=== PATIENT | male | born 1970 | race Caucasian/White ===

== ENCOUNTER 2016-09-06 19:56 | Emergency (ER) | payer OTHER ==
--- NOTE | 2016-09-06 22:08 | ED NURSING NOTES ---
Clinical Report - Nurses [facility] [address] [place] [address] 09/06/2016 19:57 Patient: AWAIS ROSADO TRIAGE Triage time 20:Sep 06 2016. Acuity: LEVEL 4. Chief Complaint: BACK PAIN and (Back pain since August, now left leg pain for one week into calf). 20:26 09/06/16. SEPSIS SCREEN: Sepsis Screen. Negative (no infection suspected/documented). NAKITA COMA SCORE: Nakita Coma Scale: 15- eyes open spontaneously (4); best verbal response- oriented x 4 (5); best motor response- obeys commands (6). --20:26 Goldie Pressley R.N. 20:19 09/06/16. BP: 152/99 (regular adult cuff) taken on the left arm, while sitting. HR: 75. RR: 18. O2 saturation: 98% on room air. Temp: 98.1 F (oral). Pain level now: 11/09. --20:26 Goldie Pressley R.N. Weight: 102 kg stated. Height/Length: 73 inches Per Patient. BMI: 29.7. --20:26 Goldie Pressley R.N. Medications Acyclovir Oral 400 mg, daily. Gabapentin Oral 100 mg, 3x a day. HydrOXYzine HCl Oral 20 mg, 2x a day. Ibuprofen Oral 800 mg, 2x a day. Nasal [place] Nasal, bid . Nortriptyline HCl Oral 10 mg, daily. Ranitidine HCl Oral 75 mg, 2x a day. Tylenol Oral 1000mg am and 1000mg pm . --20:21 Goldie Pressley R.N. Allergies No Known Drug Allergy. --20:21 Goldie Pressley R.N. History Arrived by private vehicle. Historian: patient. Accompanied by family. Onset. (1 months ago). He has had mild left leg pain. No history of recent trauma. 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 SOCIAL HX: Smoker- current status unknown. Alcohol use; consumes beer daily. Patient smells of ETOH in the emergency department. No drug use. No infectious disease exposure. ABUSE ASSESSMENT: No report of abuse. --20:26 Goldie Pressley R.N. PROBLEMS: Renal Colic. Intervertebral Disc Disease. Back Pain. Reflux. Epicondylitis. Neck Pain. --20:21 Goldie Pressley R.N. ADDITIONAL SURGERIES: Cholecystectomy. Lipomas . Vasectomy. --20:21 Goldie Pressley R.N. Interventions ID band on patient. To treatment room. --20:26 Goldie Pressley R.N. PHYSICAL ASSESSMENT 20:09/06/16. To room via wheelchair. Patient gowned. GENERAL / NEURO / PSYCH: Alert. Oriented X 4. Appears in no acute distress. RESPIRATORY: Respirations not labored. Chest nontender. Breath sounds within normal limits. CVS: Normal heart rate and rhythm. Capillary refill less than 2 seconds. GI / : Abdomen soft and nontender. Bowel sounds within normal limits. EXTREMITIES: ROM of extremities within normal limits. BACK: Normal inspection of the neck and back. Limited ROM of the back. No neck or back tenderness. --20:27 Goldie Pressley R.N. NURSING PROGRESS NOTES 20:09/06/16. The plan of care for this patient has been created. Head of bed elevated. Reassurance given. Two patient identifiers checked. Call light placed in reach. Side rails up x 1. Bed placed in lowest position. Brakes of bed on. Patient ready for evaluation- chart flagged and PA notified. --20:27 Goldie Pressley R.N. 21:09/06/2016 Valium (Diazepam) PO Tablets 2.5 mg given. Allergies verified, confirmed 5 rights and sedative warning given to the patient. --21:21 Goldie Pressley R.N. 21:21 09/06/2016 Hydrocodone-APAP (Hydrocodone-Acetaminophen) PO 5/325 mg Tablets 1 tab given. Allergies verified, confirmed 5 rights and sedative warning given to the patient. --21:21 Goldie Pressley R.N. 21:22 09/06/16. 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 Patient offered blanket and he refused. Patient notified he will have US after tech is done in another room). --21:22 Goldie Pressley R.N. 21:34 09/06/2016 Valium PO Response: no adverse reaction pain is improving. Symptoms have improved the patient feels better. --21:34 Goldie Pressley R.N. 21:34 09/06/2016 Hydrocodone-APAP PO Response: no adverse reaction pain is improving. Symptoms have improved the patient feels better. --21:34 Goldie Pressley R.N. 21:35 09/06/16. --21:35 Goldie Pressley R.N. 21:34 09/06/16. BP: 133/87 (regular adult cuff) taken on the left arm. HR: 64. RR: 16. O2 saturation: 99% on room air. Pain level now: 10/10. --21:35 Goldie Presslye R.N. 21:43 09/06/16. ( US in with patient). --21:43 Goldie Pressley R.N. 22:08 09/06/16. ( US done with patient). --22:08 Goldie Pressley R.N. 22:14 09/06/16. ( Patient ready to be discharged, he is calling for a ride home since he had pain meds and valium). --22:14 Goldie Pressley R.N. DISPOSITION / DISCHARGE 22:44 09/06/16. Condition at departure: improved. No learning barriers present. Discharge instructions provided and reviewed with the patient. Reviewed medication(s) side effects, precautions, dosing and course information. Prescription(s) given to the patient. Patient verbalized understanding. Written instructions provided in Japanese. The patient was discharged by the physician assistant research scientist. He was discharged home and accompanied by spouse. He left the Emergency Department ambulatory and via private vehicle. Spouse driving. --22:44 Goldie Pressley R.N. 22:43 09/06/16. BP: 130/82 (regular adult cuff) taken on the left arm. HR: 16. RR: 16. O2 saturation: 100% on room air. Temp: 98.4 F (oral). Pain level now: 09/09. --22:44 Goldie Pressley R.N. Departure time: 22:17 Sep 06 2016. --22:45 Goldie Pressley R.N. Locked/Released at 09/06/2016 22:45 by Goldie Pressley R.N.
--- NOTE | 2016-09-06 22:08 | ED CLINICAL REPORT ---
Clinical Report - Physicians/Mid Levels [facility] [address] [place] [address] 09/06/2016 19:57 Patient: AWAIS ROSADO Time Seen: 20:28 Sep 06 2016. Arrived- By private vehicle. Historian- patient. HISTORY OF PRESENT ILLNESS Chief Complaint: BACK PAIN. 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 It is described as being in the area of the left lower lumbar spine, left gluteus and lower lumbar spine and radiating. The quality is noted to be "pain". No bladder dysfunction, bowel dysfunction or sensory loss. Additional history - Low back pain radiating to the left lower extremity. patient reports pain worsening over the last 2 weeks, has had massage therapy to the area. Denies any direct fall or trauma to the area. Denies any saddle anesthesia. Paresthesias from his gluteus to his left foot. Patient reports calf cramping and aching. Patient denies any urinary incontinence. Reports pain worsens with movement, sitting. Patient has a difficult time finding position of comfort. Pain cristobal calf worsens with movement / relieved by rest. Patient notes the possibility of an injury. REVIEW OF SYSTEMS No fever, difficulty with urination, urinary frequency, abdominal pain or vomiting. All systems otherwise negative, except as recorded above. SOCIAL HISTORY Alcohol use. No drug use. ADDITIONAL NOTES The nursing notes have been reviewed. PHYSICAL EXAM Vital Signs: 09/06/2016 20:19 BP: 152/99. HR: 75. RR: 18. O2 saturation: 98%. Temp: 98.1 F. Pain level now: 7/10. Appearance: Alert. HEENT: Normal external inspection. Eyes: Pupils equal, round and reactive to light. ENT: Ears normal. Neck: Neck nontender. CVS: Heart sounds normal. Pulses normal. No decreased pulses. Respiratory: No respiratory distress. Breath sounds normal. Abdomen: No visible injury. The bowel sounds are not abnormal. Back: Moderate vertebral point tenderness over the mid and lower lumbar spine. Moderate soft tissue tenderness in the left mid and lower lumbar area. No muscle spasm in the back. Skin: Skin warm. Neuro: Oriented X 3. No sensory deficit. Straight leg raising: positive on the left at 45 degrees. Reflex exam: left patellar 2+. LABS, X-RAYS, AND EKG Note - Tests: (neg us let le for DT). PROGRESS AND PROCEDURES Course of Care: There are no risks for spinal epidural abscess or hematoma as patient is without any risk factors such as IVDA or evidence of active infection, no midline tenderness to percussion. Hence I do not feel emergent imaging with an MRI is indicated. However I did discuss with the patient that if these symptoms develop, or if the pain does not resolve an MRI may need to be done outpatient, or in the ED if symptoms worsen acutely or new onset of the above mentioned symptoms develop. 09/06/2016 22:43 BP: 130/82. HR: 16. RR: 16. O2 saturation: 100%. Temp: 98.4 F. Pain level now: 5/10. Patient is stable. Patient/family counseled. Disposition: Discharged. Condition: good. CLINICAL IMPRESSION Myofascial strain Acute lumbar strain. INSTRUCTIONS Apply ice. Limit lifting. No strenuous activity. Rest. (NO SIGNS OF BLOOD CLOT). Warnings: SEDATIVE MEDICATION: You were given sedative medication during your visit. Do not drive or operate dangerous machinery. Prescription Medications: Hydrocodone/APAP 5mg / 325mg: take 1 orally every 6 hours. Dispense twenty (20). No refill. Robaxin 750 mg: take 1 orally every 8 hours for 5 days, as needed for muscle spasm. Dispense fifteen (15). No refill. Substitution is permissible. Follow-up: Follow up with your doctor in three days. Understanding of the discharge instructions verbalized by patient. (Electronically signed by Neisha Wetzel P.A.-C 09/06/2016 23:17)
--- NOTE | 2016-09-06 22:08 | ED CLINICAL REPORT ---
Clinical Report - Physicians/Mid Levels [facility] [address] [place] [address] 09/06/2016 19:57 Patient: AWAIS ROSADO Time Seen: 20:28 Sep 06 2016. Arrived- By private vehicle. Historian- patient. HISTORY OF PRESENT ILLNESS Chief Complaint: BACK PAIN. 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 It is described as being in the area of the left lower lumbar spine, left gluteus and lower lumbar spine and radiating. The quality is noted to be "pain". No bladder dysfunction, bowel dysfunction or sensory loss. Additional history - Low back pain radiating to the left lower extremity. patient reports pain worsening over the last 2 weeks, has had massage therapy to the area. Denies any direct fall or trauma to the area. Denies any saddle anesthesia. Paresthesias from his gluteus to his left foot. Patient reports calf cramping and aching. Patient denies any urinary incontinence. Reports pain worsens with movement, sitting. Patient has a difficult time finding position of comfort. Pain cristobal calf worsens with movement / relieved by rest. Patient notes the possibility of an injury. REVIEW OF SYSTEMS No fever, difficulty with urination, urinary frequency, abdominal pain or vomiting. All systems otherwise negative, except as recorded above. SOCIAL HISTORY Alcohol use. No drug use. ADDITIONAL NOTES The nursing notes have been reviewed. PHYSICAL EXAM Vital Signs: 09/06/2016 20:19 BP: 152/99. HR: 75. RR: 18. O2 saturation: 98%. Temp: 98.1 F. Pain level now: 7/10. Appearance: Alert. HEENT: Normal external inspection. Eyes: Pupils equal, round and reactive to light. ENT: Ears normal. Neck: Neck nontender. CVS: Heart sounds normal. Pulses normal. No decreased pulses. Respiratory: No respiratory distress. Breath sounds normal. Abdomen: No visible injury. The bowel sounds are not abnormal. Back: Moderate vertebral point tenderness over the mid and lower lumbar spine. Moderate soft tissue tenderness in the left mid and lower lumbar area. No muscle spasm in the back. Skin: Skin warm. Neuro: Oriented X 3. No sensory deficit. Straight leg raising: positive on the left at 45 degrees. Reflex exam: left patellar 2+. LABS, X-RAYS, AND EKG Note - Tests: (neg us let le for DT). PROGRESS AND PROCEDURES Course of Care: There are no risks for spinal epidural abscess or hematoma as patient is without any risk factors such as IVDA or evidence of active infection, no midline tenderness to percussion. Hence I do not feel emergent imaging with an MRI is indicated. However I did discuss with the patient that if these symptoms develop, or if the pain does not resolve an MRI may need to be done outpatient, or in the ED if symptoms worsen acutely or new onset of the above mentioned symptoms develop. 09/06/2016 22:43 BP: 130/82. HR: 16. RR: 16. O2 saturation: 100%. Temp: 98.4 F. Pain level now: 5/10. Patient is stable. Patient/family counseled. Disposition: Discharged. Condition: good. CLINICAL IMPRESSION Myofascial strain Acute lumbar strain. INSTRUCTIONS Apply ice. Limit lifting. No strenuous activity. Rest. (NO SIGNS OF BLOOD CLOT). Warnings: SEDATIVE MEDICATION: You were given sedative medication during your visit. Do not drive or operate dangerous machinery. Prescription Medications: Hydrocodone/APAP 5mg / 325mg: take 1 orally every 6 hours. Dispense twenty (20). No refill. Robaxin 750 mg: take 1 orally every 8 hours for 5 days, as needed for muscle spasm. Dispense fifteen (15). No refill. Substitution is permissible. Follow-up: Follow up with your doctor in three days. Understanding of the discharge instructions verbalized by patient. (Electronically signed by Neisha Wetzle P.A.-C 09/06/2016 23:17)
--- NOTE | 2016-09-06 22:08 | ED ORDER SUMMARY ---
..... Patient: AWAIS ROSADO OrderSheet [facility] VisitID: [id number] [address] [place] [address] 46y, M Registration Date/Time: 09/06/2016 ORDER SHEET Weight: 102.0 kg (stated) Allergies: No Known Drug Allergy GENERAL ORDERS: US Venous Left Urgent (20:50 09/06/2016 Fiordaliza Schaefer) (Ack 21:00 AMcQuoid ER Tech1) (22:08 JSanders R.N.) MEDICATION ORDERS: Hydrocodone-APAP PO 5/325 mg (NOW, HIGH ALERT MEDICATION) (20:58 09/06/2016 Fiordaliza Schaefer) (Ack 21:18 JSanders R.N.) (21:21 JSanders R.N.) Valium PO 2.5 mg (HIGH ALERT MEDICATION, NOW) (20:58 09/06/2016 Fiordaliza Schaefer) (Ack 21:18 JSanders R.N.) (21:21 JSanders R.N.) IV FLUIDS: ORDER SHEET NOTES: [Electronically signed by Goldie Pressley R.N. (22:45 09/06/2016)] [Electronically signed by Neisha Wetzel P.A.-C (23:17 09/06/2016)] [Electronically locked/signed by Goldie Pressley R.N. (22:45 09/06/2016)]
--- NOTE | 2016-09-06 22:08 | ED NURSING NOTES ---
Clinical Report - Nurses [facility] [address] [place] [address] 09/06/2016 19:57 Patient: AWAIS ROSADO TRIAGE Triage time 20:Sep 06 2016. Acuity: LEVEL 4. Chief Complaint: BACK PAIN and (Back pain since August, now left leg pain for one week into calf). 20:26 09/06/16. SEPSIS SCREEN: Sepsis Screen. Negative (no infection suspected/documented). NAKITA COMA SCORE: Nakita Coma Scale: 15- eyes open spontaneously (4); best verbal response- oriented x 4 (5); best motor response- obeys commands (6). --20:26 Goldie Pressley R.N. 20:19 09/06/16. BP: 152/99 (regular adult cuff) taken on the left arm, while sitting. HR: 75. RR: 18. O2 saturation: 98% on room air. Temp: 98.1 F (oral). Pain level now: 11/09. --20:26 Goldie Pressley R.N. Weight: 102 kg stated. Height/Length: 73 inches Per Patient. BMI: 29.7. --20:26 Goldie Pressley R.N. Medications Acyclovir Oral 400 mg, daily. Gabapentin Oral 100 mg, 3x a day. HydrOXYzine HCl Oral 20 mg, 2x a day. Ibuprofen Oral 800 mg, 2x a day. Nasal [place] Nasal, bid . Nortriptyline HCl Oral 10 mg, daily. Ranitidine HCl Oral 75 mg, 2x a day. Tylenol Oral 1000mg am and 1000mg pm . --20:21 Goldie Pressley R.N. Allergies No Known Drug Allergy. --20:21 Goldie Pressley R.N. History Arrived by private vehicle. Historian: patient. Accompanied by family. Onset. (1 months ago). He has had mild left leg pain. No history of recent trauma. 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 SOCIAL HX: Smoker- current status unknown. Alcohol use; consumes beer daily. Patient smells of ETOH in the emergency department. No drug use. No infectious disease exposure. ABUSE ASSESSMENT: No report of abuse. --20:26 Goldie Pressley R.N. PROBLEMS: Renal Colic. Intervertebral Disc Disease. Back Pain. Reflux. Epicondylitis. Neck Pain. --20:21 Goldie Pressley R.N. ADDITIONAL SURGERIES: Cholecystectomy. Lipomas . Vasectomy. --20:21 Goldie Pressley R.N. Interventions ID band on patient. To treatment room. --20:26 Goldie Pressley R.N. PHYSICAL ASSESSMENT 20:09/06/16. To room via wheelchair. Patient gowned. GENERAL / NEURO / PSYCH: Alert. Oriented X 4. Appears in no acute distress. RESPIRATORY: Respirations not labored. Chest nontender. Breath sounds within normal limits. CVS: Normal heart rate and rhythm. Capillary refill less than 2 seconds. GI / : Abdomen soft and nontender. Bowel sounds within normal limits. EXTREMITIES: ROM of extremities within normal limits. BACK: Normal inspection of the neck and back. Limited ROM of the back. No neck or back tenderness. --20:27 Goldie Pressley R.N. NURSING PROGRESS NOTES 20:09/06/16. The plan of care for this patient has been created. Head of bed elevated. Reassurance given. Two patient identifiers checked. Call light placed in reach. Side rails up x 1. Bed placed in lowest position. Brakes of bed on. Patient ready for evaluation- chart flagged and PA notified. --20:27 Goldie Pressley R.N. 21:09/06/2016 Valium (Diazepam) PO Tablets 2.5 mg given. Allergies verified, confirmed 5 rights and sedative warning given to the patient. --21:21 Goldie Pressley R.N. 21:21 09/06/2016 Hydrocodone-APAP (Hydrocodone-Acetaminophen) PO 5/325 mg Tablets 1 tab given. Allergies verified, confirmed 5 rights and sedative warning given to the patient. --21:21 Goldie Pressley R.N. 21:22 09/06/16. 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 Patient offered blanket and he refused. Patient notified he will have US after tech is done in another room). --21:22 Goldie Pressley R.N. 21:34 09/06/2016 Valium PO Response: no adverse reaction pain is improving. Symptoms have improved the patient feels better. --21:34 Goldie Pressley R.N. 21:34 09/06/2016 Hydrocodone-APAP PO Response: no adverse reaction pain is improving. Symptoms have improved the patient feels better. --21:34 Goldie Pressley R.N. 21:35 09/06/16. --21:35 Goldie Pressley R.N. 21:34 09/06/16. BP: 133/87 (regular adult cuff) taken on the left arm. HR: 64. RR: 16. O2 saturation: 99% on room air. Pain level now: 10/10. --21:35 Goldie Pressley R.N. 21:43 09/06/16. ( US in with patient). --21:43 Goldie Pressley R.N. 22:08 09/06/16. ( US done with patient). --22:08 Goldie Pressley R.N. 22:14 09/06/16. ( Patient ready to be discharged, he is calling for a ride home since he had pain meds and valium). --22:14 Goldie Pressley R.N. DISPOSITION / DISCHARGE 22:44 09/06/16. Condition at departure: improved. No learning barriers present. Discharge instructions provided and reviewed with the patient. Reviewed medication(s) side effects, precautions, dosing and course information. Prescription(s) given to the patient. Patient verbalized understanding. Written instructions provided in Danish. The patient was discharged by the physician assistant surveyor. He was discharged home and accompanied by spouse. He left the Emergency Department ambulatory and via private vehicle. Spouse driving. --22:44 Goldie Pressley R.N. 22:43 09/06/16. BP: 130/82 (regular adult cuff) taken on the left arm. HR: 16. RR: 16. O2 saturation: 100% on room air. Temp: 98.4 F (oral). Pain level now: 09/09. --22:44 Goldie Pressley R.N. Departure time: 22:17 Sep 06 2016. --22:45 Goldie Pressley R.N. Locked/Released at 09/06/2016 22:45 by Goldie Pressley R.N.
--- NOTE | 2016-09-06 22:08 | ED ORDER SUMMARY ---
..... Patient: AWAIS ROSADO OrderSheet [facility] VisitID: [id number] [address] [place] [address] 46y, M Registration Date/Time: 09/06/2016 ORDER SHEET Weight: 102.0 kg (stated) Allergies: No Known Drug Allergy GENERAL ORDERS: US Venous Left Urgent (20:50 09/06/2016 Fiordaliza Schaefer) (Ack 21:00 AMcQuoid ER Tech1) (22:08 JSanders R.N.) MEDICATION ORDERS: Hydrocodone-APAP PO 5/325 mg (NOW, HIGH ALERT MEDICATION) (20:58 09/06/2016 Fiordaliza Schaefer) (Ack 21:18 JSanders R.N.) (21:21 JSanders R.N.) Valium PO 2.5 mg (HIGH ALERT MEDICATION, NOW) (20:58 09/06/2016 Fiordaliza Schaefer) (Ack 21:18 JSanders R.N.) (21:21 JSanders R.N.) IV FLUIDS: ORDER SHEET NOTES: [Electronically signed by Goldie Pressley R.N. (22:45 09/06/2016)] [Electronically signed by Neisha Wetzel P.A.-C (23:17 09/06/2016)] [Electronically locked/signed by Goldie Pressley R.N. (22:45 09/06/2016)]
--- NOTE | 2016-09-06 22:35 | DIAGNOSTIC IMAGING REPORT ---
PROCEDURE: US VENOUS - LEFT EXT INDICATION: PAIN TECHNIQUE: Duplex sonography of the deep venous system in the left lower extremity was performed. Compression and augmentation techniques were used. COMPARISON: None. FINDINGS: Each interrogated segment of deep vein from the common femoral vein into the calf veins demonstrates normal compressibility, augmentation and/or color Doppler flow without filling defect. No evidence of significant soft-tissue edema, soft-tissue mass or cyst. Prominent, patent dilated varicose vein in the left mid calf medially. IMPRESSION: 1. No deep venous thrombosis in the left lower extremity. 2. No visible superficial thrombophlebitis.
--- NOTE | 2016-09-06 23:17 | ED MED RECONCILIATION SUMMARY ---
Patient: AWAIS ROSADO Medication Reconciliation Report [facility] VisitID: [id number] [address] [place] [address] 46y, M Registration Date/Time: 09/06/2016 Weight: 102.0 kg Height/Length: 73 in. BMI: 29.7 ALLERGIES: No Known Drug Allergy The patient's Home Medications are listed below: THE FOLLOWING MEDICATIONS NEED TO BE RECONCILED: Acyclovir Oral 400 mg, daily Gabapentin Oral 100 mg, 3x a day HydrOXYzine HCl Oral 20 mg, 2x a day Ibuprofen Oral 800 mg, 2x a day Nasal [place] Nasal, bid Nortriptyline HCl Oral 10 mg, daily Ranitidine HCl Oral 75 mg, 2x a day Tylenol Oral 1000mg am and 1000mg pm The source(s) of the original Home Medication information: Not obtained. The following Medications were given to the patient in the Emergency Department: Valium [PO] PO 2.5 mg, administered: 09/06/2016 9:21:00 PM Hydrocodone-APAP [PO] PO 1 tab, administered: 09/06/2016 9:21:00 PM The following Medications were prescribed to the patient: Hydrocodone/APAP 5mg / 325mg: take 1 orally every 6 hours. Dispense twenty (20). No refill. -- Neisha Wetzel P.ABassem Robaxin 750 mg: take 1 orally every 8 hours for 5 days, as needed for muscle spasm. Dispense fifteen (15). No refill. Substitution is permissible. -- Neisha Wetzel P.APetey-Darya
--- NOTE | 2016-09-06 23:17 | ED DISCHARGE INSTRUCTIONS ---
Patient: AWAIS ROSADO General Instructions [facility] VisitID: [id number] [place] [address] 46y, M Registration Date/Time: 09/06/2016 Myofascial strain Acute lumbar strain. INSTRUCTIONS Apply ice. Limit lifting. No strenuous activity. Rest. (NO SIGNS OF BLOOD CLOT). Warnings: SEDATIVE MEDICATION: You were given sedative medication during your visit. Do not drive or operate dangerous machinery. Prescription Medications: Hydrocodone/APAP 5mg / 325mg: take 1 orally every 6 hours. Dispense twenty (20). No refill. Robaxin 750 mg: take 1 orally every 8 hours for 5 days, as needed for muscle spasm. Dispense fifteen (15). No refill. Substitution is permissible. Follow-up: Follow up with your doctor in three days. Understanding of the discharge instructions verbalized by patient. ADDITIONAL INFORMATION Back Pain [Acute Or Chronic] Back pain is usually caused by an injury to the muscles or ligaments of the spine. Sometimes the disks that separate each bone in the spine may bulge and cause pain by pressing on a nearby nerve. Back pain may also appear after a sudden twisting/bending force (such as in a car accident), after a simple awkward movement, or lifting something heavy with poor body positioning. In either case, muscle spasm is often present and adds to the pain. Acute back pain usually gets better in one to two weeks. Back pain related to disk disease, arthritis in the spinal joints or spinal stenosis (narrowing of the spinal canal) can become chronic and last for months or years. Unless you had a physical injury (for example, a car accident or fall) X-rays are usually not ordered for the initial evaluation of back pain. If pain continues and does not respond to medical treatment, x-rays and other tests may be performed at a later time. Home Care: You may need to stay in bed the first few days. But, as soon as possible, begin sitting or walking to avoid problems with prolonged bed rest (muscle weakness, worsening back stiffness and pain, blood clots in the legs). When in bed, try to find a position of comfort. A firm mattress is best. Try lying flat on your back with pillows under your knees. You can also try lying on your side with your knees bent up towards your chest and a pillow between your knees. Avoid prolonged sitting. This puts more stress on the lower back than standing or walking. During the first two days after injury, apply an ICE PACK to the painful area for 20 minutes every 2-4 hours. This will reduce swelling and pain. HEAT (hot shower, hot bath or heating pad) works well for muscle spasm. You can start with ice, then switch to heat after two days. Some patients feel best alternating ice and heat treatments. Use the one method that feels the best to you. You may use acetaminophen (Tylenol) or ibuprofen (Motrin, Advil) to control pain, unless another pain medicine was prescribed. [NOTE: If you have chronic liver or kidney disease or ever had a stomach ulcer or GI bleeding, talk with your doctor before using these medicines.] Be aware of safe lifting methods and do not lift anything over 15 pounds until all the pain is gone. Follow Up with your doctor or this facility if your symptoms do not start to improve after one week. Physical therapy may be needed. [NOTE: If X-rays were taken, they will be reviewed by a radiologist. You will be notified of any new findings that may affect your care.] Get Prompt Medical Attention if any of the following occur: Pain becomes worse or spreads to your legs Weakness or numbness in one or both legs Loss of bowel or bladder control Numbness in the groin or genital area Sciatica Sciatica ("Lumbar Radiculopathy") causes a pain that spreads from the lower back down into the buttock, hip and leg. Sometimes leg pain can occur without any back pain. Sciatica is due to irritation or pressure on a spinal nerve as it comes out of the spinal canal. This is most often due to a bulge or rupture of a nearby spinal disk (the cartilage cushion between each spinal bone), which presses on a nearby nerve. Other causes include spinal stenosis (narrowing of the spinal canal) and spasm of the pyriform muscle (a muscle in the buttocks that the sciatic nerve passes through). Sciatica may begin after a sudden twisting/bending force (such as in a car accident), or sometimes after a simple awkward movement. In either case, muscle spasm is commonly present and contributes to the pain. The diagnosis of sciatica is made from the symptoms and physical exam. Unless you had a physical injury (such as a car accident or fall), X-rays are usually not ordered for the initial evaluation of sciatica because the nerves and disks cannot be seen on an x-ray. If signs of a compressed nerve are present (for example, loss of tendon reflex or strength in the leg), an MRI (magnetic resonance imaging) scan will need to be scheduled as an outpatient. Most sciatica (80-90%) gets better with medicine, exercise, physical therapy. If symptoms continue after at least three months of medical treatment, surgery may be considered. Home Care: You may need to stay in bed the first few days. But, as soon as possible, begin sitting or walking to avoid problems with prolonged bed rest. When in bed, try to find a position of comfort. A firm mattress is best. Try lying flat on your back with pillows under your knees. You can also try lying on your side with your knees bent up towards your chest and a pillow between your knees. Avoid prolonged sitting. This puts more stress on the lower back than standing or walking. Some persons find relief with heat (hot shower, hot bath or heating pad) and massage, while others prefer cold packs (crushed or cubed ice in a plastic bag, wrapped in a towel). Try both and use the method that feels best for 20 minutes several times a day. You may use acetaminophen (Tylenol) or ibuprofen (Motrin, Advil) to control pain, unless another pain medicine was prescribed. [ NOTE: If you have chronic liver or kidney disease or ever had a stomach ulcer or GI bleeding, talk with your doctor before using these medicines.] Be aware of safe lifting methods and do not lift anything over 15 pounds until all the pain is gone. Follow Up with your doctor or this facility if your symptoms do not start to improve after one week. Physical therapy or further testing may be needed. [NOTE: If X-rays were taken, they will be reviewed by a radiologist. You will be notified of any new findings that may affect your care.] Get Prompt Medical Attention if any of the following occur: Pain becomes worse, not controlled by the prescribed medicine Weakness or numbness in one or both legs Numbness in the groin, genital area Loss of bowel or bladder control Hydrocodone Bitartrate, Acetaminophen Oral tablet What is this medicine? ACETAMINOPHEN; HYDROCODONE (a set a HOLLAND asa fen; enmanuel droe KOE done) is a pain reliever. It is used to treat mild to moderate pain. How should I use this medicine? Take this medicine by mouth. Swallow it with a full glass of water. Follow the directions on the prescription label. If the medicine upsets your stomach, take the medicine with food or milk. Do not take more than you are told to take. Talk to your feed mill lab technician regarding the use of this medicine in children. This medicine is not approved for use in children. What side effects may I notice from receiving this medicine? Side effects that you should report to your doctor or health critical care registered nurse as soon as possible: allergic reactions like skin rash, itching or hives, swelling of the face, lips, or tongue breathing problems confusion feeling faint or lightheaded, falls stomach pain yellowing of the eyes or skin Side effects that usually do not require medical attention (report to your doctor or health critical care registered nurse if they continue or are bothersome): nausea, vomiting stomach upset What may interact with this medicine? alcohol antihistamines isoniazid medicines for depression, anxiety, or psychotic disturbances medicines for sleep muscle relaxants naltrexone narcotic medicines (opiates) for pain phenobarbital ritonavir tramadol What if I miss a dose? If you miss a dose, take it as soon as you can. If it is almost time for your next dose, take only that dose. Do not take double or extra doses. Where should I keep my medicine? Keep out of the reach of children. This medicine can be abused. Keep your medicine in a safe place to protect it from theft. Do not share this medicine with anyone. Selling or giving away this medicine is dangerous and against the law. Store at room temperature between 15 and 30 degrees C (59 and 86 degrees F). Protect from light. Keep container tightly closed. Throw away any unused medicine after the expiration date. Discard unused medicine and used packaging carefully. Pets and children can be harmed if they find used or lost packages. What should I tell my health care provider before I take this medicine? They need to know if you have any of these conditions: brain tumor Crohn's disease, inflammatory bowel disease, or ulcerative colitis drink more than 3 alcohol-containing drinks per day drug abuse or addiction head injury heart or circulation problems kidney disease or problems going to the bathroom liver disease lung disease, asthma, or breathing problems an unusual or allergic reaction to acetaminophen, hydrocodone, other opioid analgesics, other medicines, foods, dyes, or preservatives or trying to get breast-feeding What should I watch for while using this medicine? Tell your doctor or health critical care registered nurse if your pain does not go away, if it gets worse, or if you have new or a different type of pain. You may develop tolerance to the medicine. Tolerance means that you will need a higher dose of the medicine for pain relief. Tolerance is normal and is expected if you take the medicine for a long time. Do not suddenly stop taking your medicine because you may develop a severe reaction. Your body becomes used to the medicine. This does NOT mean you are addicted. Addiction is a behavior related to getting and using a drug for a non-medical reason. If you have pain, you have a medical reason to take pain medicine. Your doctor will tell you how much medicine to take. If your doctor wants you to stop the medicine, the dose will be slowly lowered over time to avoid any side effects. You may get drowsy or dizzy when you first start taking the medicine or change doses. Do not drive, use machinery, or do anything that may be dangerous until you know how the medicine affects you. Stand or sit up slowly. There are different types of narcotic medicines (opiates) for pain. If you take more than one type at the same time, you may have more side effects. Give your health care provider a list of all medicines you use. Your doctor will tell you how much medicine to take. Do not take more medicine than directed. Call emergency for help if you have problems breathing. The medicine will cause constipation. Try to have a bowel movement at least every 2 to 3 days. If you do not have a bowel movement for 3 days, call your doctor or health critical care registered nurse. Too much acetaminophen can be very dangerous. Do not take Tylenol (acetaminophen) or medicines that contain acetaminophen with this medicine. Many non-prescription medicines contain acetaminophen. Always read the labels carefully. Methocarbamol Oral tablet What is this medicine? METHOCARBAMOL (meth oh MIKE ba mole) helps to relieve pain and stiffness in muscles caused by strains, sprains, or other injury to your muscles. How should I use this medicine? Take this medicine by mouth with a full glass of water. Follow the directions on the prescription label. Take your medicine at regular intervals. Do not take your medicine more often than directed. Talk to your feed mill lab technician regarding the use of this medicine in children. Special care may be needed. What side effects may I notice from receiving this medicine? Side effects that you should report to your doctor or health critical care registered nurse as soon as possible: allergic reactions like skin rash, itching or hives, swelling of the face, lips, or tongue blurred vision or changes in vision confusion fainting spells fever nausea or vomiting seizures Side effects that usually do not require medical attention (report to your doctor or health critical care registered nurse if they continue or are bothersome): dizziness drowsiness headache metallic taste What may interact with this medicine? alcohol or medicines that contain alcohol cholinesterase inhibitors like neostigmine, ambenonium, and pyridostigmine bromide other medicines that cause drowsiness What if I miss a dose? If you miss a dose, take it as soon as you can. If it is almost time for your next dose, take only the next dose. Do not take double or extra doses. Where should I keep my medicine? Keep out of the reach of children. Store at room temperature between 20 and 25 degrees C (68 and 77 degrees F). Keep container tightly closed. Throw away any unused medicine after the expiration date. What should I tell my health care provider before I take this medicine? They need to know if you have any of these conditions: kidney disease seizures an unusual or allergic reaction to methocarbamol, other medicines, foods, dyes, or preservatives or trying to get breast-feeding What should I watch for while using this medicine? You may get drowsy or dizzy. Do not drive, use machinery, or do anything that needs mental alertness until you know how this medicine affects you. Do not stand or sit up quickly, especially if you are an older patient. This reduces the risk of dizzy or fainting spells. Alcohol may interfere with the effect of this medicine. Avoid alcoholic drinks. You have been given the following additional information: Back Pain (Acute Or Chronic) Back Pain W/ Sciatica Hydrocodone Bitartrate, Acetaminophen Oral tablet Methocarbamol Oral tablet Limit lifting. No strenuous activity. Rest. (Electronically signed by Neisha Wetzel P.A.-C 09/06/2016 23:17)
--- NOTE | 2016-09-06 23:17 | ED MAR SUMMARY ---
..... Medication Administration Record [facility] [address] [place] [address] Patient: AWAIS ROSADO Visit ID: [id number] 46y, M Weight: 102.0 kg Height/Length: 73 in BMI: 29.7 ALLERGIES: No Known Drug Allergy Given 21:09/06/2016 Goldie Pressley R.N. Medication Administered: HYDROCODONE-APAP [PO] (HYDROCODONE-ACETAMINOPHEN), Dose: 1 tab 5/325 mg Tablets PO. Medication Ordered: Hydrocodone-APAP PO 5/325 mg (NOW, HIGH ALERT MEDICATION). Given 21:09/06/2016 Goldie Pressley R.N. Medication Administered: VALIUM [PO] (DIAZEPAM), Dose: 2.5 mg Tablets PO. Medication Ordered: Valium PO 2.5 mg (HIGH ALERT MEDICATION, NOW).
--- NOTE | 2016-09-06 23:17 | ED MAR SUMMARY ---
..... Medication Administration Record [facility] [address] [place] [address] Patient: AWAIS ROSADO Visit ID: [id number] 46y, M Weight: 102.0 kg Height/Length: 73 in BMI: 29.7 ALLERGIES: No Known Drug Allergy Given 21:09/06/2016 Goldie Pressley R.N. Medication Administered: HYDROCODONE-APAP [PO] (HYDROCODONE-ACETAMINOPHEN), Dose: 1 tab 5/325 mg Tablets PO. Medication Ordered: Hydrocodone-APAP PO 5/325 mg (NOW, HIGH ALERT MEDICATION). Given 21:09/06/2016 Goldie Pressley R.N. Medication Administered: VALIUM [PO] (DIAZEPAM), Dose: 2.5 mg Tablets PO. Medication Ordered: Valium PO 2.5 mg (HIGH ALERT MEDICATION, NOW).
--- NOTE | 2016-09-06 23:17 | ED MED RECONCILIATION SUMMARY ---
Patient: AWAIS ROSADO Medication Reconciliation Report [facility] VisitID: [id number] [address] [place] [address] 46y, M Registration Date/Time: 09/06/2016 Weight: 102.0 kg Height/Length: 73 in. BMI: 29.7 ALLERGIES: No Known Drug Allergy The patient's Home Medications are listed below: THE FOLLOWING MEDICATIONS NEED TO BE RECONCILED: Acyclovir Oral 400 mg, daily Gabapentin Oral 100 mg, 3x a day HydrOXYzine HCl Oral 20 mg, 2x a day Ibuprofen Oral 800 mg, 2x a day Nasal Wilson Nasal, bid Nortriptyline HCl Oral 10 mg, daily Ranitidine HCl Oral 75 mg, 2x a day Tylenol Oral 1000mg am and 1000mg pm The source(s) of the original Home Medication information: Not obtained. The following Medications were given to the patient in the Emergency Department: Valium [PO] PO 2.5 mg, administered: 09/06/2016 9:21:00 PM Hydrocodone-APAP [PO] PO 1 tab, administered: 09/06/2016 9:21:00 PM The following Medications were prescribed to the patient: Hydrocodone/APAP 5mg / 325mg: take 1 orally every 6 hours. Dispense twenty (20). No refill. -- Neisha Wetzel P.ABassem Robaxin 750 mg: take 1 orally every 8 hours for 5 days, as needed for muscle spasm. Dispense fifteen (15). No refill. Substitution is permissible. -- Neisha Wetzel P.APetey-Darya
== END 2016-09-06 22:17 | disposition home or self-care (01) ==
LOC: ED SRH 19:56
DX: S39.012A Strain of muscle, fascia and tendon of lower back, initial encounter (principal); M79.1 Myalgia; X50.1XXA Overexertion from prolonged static or awkward postures, initial encounter; Y93.9 Activity, unspecified; Y99.9 Unspecified external cause status; Y92.9 Unspecified place or not applicable